=== PATIENT | female | born 1955 | race African-American/Black ===

== ENCOUNTER 2023-12-14 13:33 | Inpatient (IN) | payer MEDICAID ==
[~2023-12-14] VITALS: Ht 162.6 cm; Wt 101.6 kg
[2023-12-14] MEDS: IV NS 0.9% 1,000 ML BAG IV ONE ×2 (14:00→15:00)
[2023-12-14] MEDS ORDERED: ACETAMINOPHEN ES 500 MG TABLET ONE (14:12)
[2023-12-14] MEDS: ACETAMINOPHEN ES 500 MG TABLET PO ONE (14:14)
[2023-12-14] MEDS ORDERED: ONDANSETRON HCL/PF 4 MG/2 ML VIAL ONE (14:31)
[2023-12-14] MEDS ORDERED: hydrALAZINE HCL IV 20 MG VIAL ONE (14:31)
[2023-12-14] MEDS ORDERED: FAMOTIDINE/PF INJ 20 MG/2 ML VIAL IV ONE (14:32)
[2023-12-14] MEDS: hydrALAZINE HCL IV 20 MG VIAL IV ONE (14:44)
[2023-12-14] MEDS: ONDANSETRON HCL/PF 4 MG/2 ML VIAL IVP ONE (14:44)
[2023-12-14] MEDS: FAMOTIDINE/PF INJ 20 MG/2 ML VIAL IV ONE (14:44)
[2023-12-14] MEDS: VANCOMYCIN 1 GM in IV D5W 250 ML IV ONE (14:45)
[2023-12-14 14:47] LABS: CALCIUM, SERUM 9.2 mg/dL (8.5-10.1); CREATININE 0.9 mg/dL (0.6-1.3); POTASSIUM 3.6 mmol/L (3.5-5.1)
[2023-12-14 14:51] LABS: APPEARANCE,URINE SLIGHTLY CLOUDY (CLEAR); BILIRUBIN,URINE NEGATIVE (NEGATIVE); BLOOD, URINE 1+ Ery/uL (NEGATIVE); COLOR,URINE YELLOW (YELLOW); KETONES,URINE NEGATIVE (NEGATIVE); LEUKOCYTE ESTERASE ,URINE NEGATIVE (NEGATIVE); NITRITE, URINE POSITIVE (NEGATIVE); PROTEIN,URINE 1+ mg/dl (NEGATIVE); UGLUCOSE NEGATIVE (NEGATIVE)
[2023-12-14 14:54] LABS: ALBUMIN 3.4 g/dL (3.4-5.0); BILIRUBIN,DIRECT 0.3 mg/dL (0.0-0.2); BILIRUBIN,TOTAL 1.6 mg/dL (0.2-1.0); TOTAL PROTEIN, SERUM 8.9 g/dL (6.4-8.2)
[2023-12-14 14:57] LABS: LACTIC ACID 2.5 mmol/L (0.4-2.0)
[2023-12-14 15:00] LABS: BASOPHILS % (AUTO) 0.1 % (0.0-2.0); HEMATOCRIT 40 % (33-45); HEMOGLOBIN 12.9 g/dL (11.5-14.8); LYMPHOCYTES # (AUTO) 0.5 K/uL (0.8-4.8); LYMPHOCYTES % (AUTO) 2.5 % (20.0-44.0); MEAN CORPUSCULAR HEMOGLOBIN 29 PG (26.0-33.0); MEAN CORPUSCULAR HGB CONC 33 g/dl (31.0-36.0); MEAN CORPUSCULAR VOLUME 88 fL (82-100); MONOCYTES # (AUTO) 0.6 K/uL (0.1-1.30); MONOCYTES % (AUTO) 3.1 % (2.0-12.0); NEUTROPHILS # (AUTO) 18.7 K/uL (1.8-8.9); NEUTROPHILS % (AUTO) 94.3 % (43.0-81.0); PLATELET COUNT (AUTO) 383 K/uL (150-450); RED BLOOD CELL COUNT(AUTO) 4.52 MIL/uL (4.0-5.2); RED CELL DISTRIBUTION WIDTH 13.4 % (11.5-15.0); WHITE BLOOD COUNT (AUTO) 19.8 K/uL (4.3-11.0)
[2023-12-14 15:32] LABS: INR 1.09 (0.91-1.10); PARTIAL THROMBOPLASTIN TIME 28.1 SEC (24.3-34.3); PROTHROMBIN TIME 11.5 SECS (9.2-11.1)
[2023-12-14 15:48] LABS: ADD URINE CULTURE YES; BACTERIA,URINE 3+ /HPF (None Seen); SQUAMOUS EPITHELIAL CELL,UR 0-2 /HPF (None Seen); WBC,URINE 0-2 /HPF (0-3)
[2023-12-14] MEDS ORDERED: MORPHINE SULFATE INJ 2 MG/ML DISP.SYRIN IV PRN (16:00)
[2023-12-14] MEDS ORDERED: ZOLPIDEM TARTRATE 5 MG TABLET PO PRN (16:00)
[2023-12-14] MEDS ORDERED: MAGNESIUM HYDROXIDE 30 ML UDC PO PRN (16:00)
[2023-12-14] MEDS ORDERED: MAG HYDROX/AL HYDROX/SIMETH 30 ML UDC PO PRN (16:00)
[2023-12-14] MEDS ORDERED: ONDANSETRON HCL/PF 4 MG/2 ML VIAL IVP PRN (16:00)
[2023-12-14] MEDS ORDERED: ACETAMINOPHEN 325 MG TABLET PO PRN ×2 (16:00→17:30)
[2023-12-14] MEDS ORDERED: Z GUARD REMEDY 4 OZ OINT TP PRN (16:00)
[2023-12-14] MEDS: ENOXAPARIN SODIUM 40 MG/0.4 ML DISP.SYRIN SQ SCH (17:00)
[2023-12-14 18:22] VITALS: BP 180/77; TEMP 98.4; O2SAT 97
[2023-12-14 18:24] LABS: ANISOCYTOSIS 1+; BAND % (MANUAL) 6 % (0.0-5.0); LYMPHOCYTES % (MANUAL) 5 % (16-48); MONOCYTES % (MANUAL) 4 % (0-11.0); NEUTROPHILS % (MANUAL) 85 (42-76); PLATELET ESTIMATE ADEQUATE
[2023-12-14] MEDS: LOSARTAN POTASSIUM 25 MG TABLET PO SCH (18:29)
[2023-12-14] MEDS: VANCOMYCIN 500 MG in IV D5W 100ml IV ONE (18:30)
[2023-12-14] MEDS: IV 1/2NS 1000 ML 1,000 ML IV PRN (18:30)
[2023-12-14 20:00] VITALS: BP 167/73; TEMP 102; O2SAT 97
[2023-12-15] MEDS ORDERED: MEROPENEM 1 G VIAL IV ONE (00:35)
[2023-12-15] MEDS: MEROPENEM 1 G in IV NS 0.9% 100 ML IV ONE (00:47)
[2023-12-15 04:00] VITALS: BP 157/91; TEMP 103.1; O2SAT 95
[2023-12-15] MEDS: VANCOMYCIN 1 GM in IV D5W 250ml IV SCH (05:50)
[2023-12-15] MEDS: MEROPENEM 1 G in IV NS 0.9% 100 ML IV SCH (08:46)
[2023-12-15] MEDS: PANTOPRAZOLE 40 MG TABLET.DR PO SCH (08:47)
[2023-12-15] MEDS: ASPIRIN 81 MG TAB.CHEW PO SCH (11:00)
[2023-12-15] MEDS: METOPROLOL TARTRATE 50 MG TABLET PO SCH (11:00)
[2023-12-15 12:00] VITALS: BP 132/70; TEMP 100.1; O2SAT 95
[2023-12-15 18:11] LABS: CALCIUM, SERUM 8.4 mg/dL (8.5-10.1); POTASSIUM 3.5 mmol/L (3.5-5.1)
[2023-12-15 20:00] VITALS: BP 168/75; TEMP 99.1; O2SAT 96
[2023-12-16] VITALS: BP 133/71; TEMP 99.5; O2SAT 97
[2023-12-16 04:00] VITALS: BP 132/68; TEMP 99; O2SAT 97
[2023-12-16] MEDS: IBUPROFEN 400 MG TABLET PO PRN (06:02)
[2023-12-16] MEDS: VANCOMYCIN HCL 1.25 GM in IV D5W 250 ML IV SCH (06:12)
[2023-12-16] MEDS: ENSURE ENLIVE 237 ML LIQUID (VANILLA) PO SCH (09:00)
[2023-12-16 16:05] VITALS: BP 144/75; TEMP 97.9; O2SAT 95
[2023-12-17] VITALS: BP 167/87; TEMP 98.2; O2SAT 95
[2023-12-17 08:00] VITALS: BP 165/78; TEMP 97.9; O2SAT 96
[2023-12-17] MEDS ORDERED: IOHEXOL-350 100 ML VIAL IV ONE (13:06)
[2023-12-17] MEDS ORDERED: CT SWABBABLE VALVE TRANS SET 1 EA INFUS.SET MC ONE (13:07)
[2023-12-17] MEDS ORDERED: IV NS 0.9% 250 ML IV ONE (13:08)
[2023-12-17] MEDS: METOPROLOL TARTRATE INJ 5 MG/5 ML AMPUL IVP PRN (13:25)
[2023-12-17] MEDS ORDERED: NITROGLYCERIN 0.4 MG/TAB BOTTLE ONE (13:30)
[2023-12-17] MEDS ORDERED: METOPROLOL TARTRATE INJ 5 MG/5 ML AMPUL ONE (13:30)
[2023-12-17] MEDS: NITROGLYCERIN 0.4 MG/TAB BOTTLE SL ONE (13:41)
[2023-12-17] MEDS: APIXABAN 5 MG TABLET PO SCH (17:00)
[2023-12-17 20:27] VITALS: BP 160/76; TEMP 98.6; O2SAT 94
[2023-12-18] VITALS: BP 142/74; TEMP 98.8; O2SAT 95
[2023-12-18 04:00] VITALS: BP 152/78; TEMP 98.9; O2SAT 95
[2023-12-18 07:40] LABS: BASOPHILS % (AUTO) 0.4 % (0.0-2.0); EOSINOPHILS # (AUTO) 0.4 K/uL (0.0-0.7); HEMATOCRIT 34 % (33-45); HEMOGLOBIN 11.5 g/dL (11.5-14.8); LYMPHOCYTES # (AUTO) 1.7 K/uL (0.8-4.8); LYMPHOCYTES % (AUTO) 21.6 % (20.0-44.0); MEAN CORPUSCULAR HEMOGLOBIN 29 PG (26.0-33.0); MEAN CORPUSCULAR HGB CONC 34 g/dl (31.0-36.0); MEAN CORPUSCULAR VOLUME 86 fL (82-100); MONOCYTES # (AUTO) 0.7 K/uL (0.1-1.30); MONOCYTES % (AUTO) 9.5 % (2.0-12.0); NEUTROPHILS % (AUTO) 63.5 % (43.0-81.0); PLATELET COUNT (AUTO) 361 K/uL (150-450); RED CELL DISTRIBUTION WIDTH 13.4 % (11.5-15.0); WHITE BLOOD COUNT (AUTO) 7.9 K/uL (4.3-11.0)
[2023-12-18 08:00] VITALS: BP 165/70; TEMP 99; O2SAT 94
[2023-12-18 08:00] LABS: CALCIUM, SERUM 8.6 mg/dL (8.5-10.1); CREATININE 0.9 mg/dL (0.6-1.3); MAGNESIUM 2.1 mg/dL (1.8-2.4); PHOSPHORUS 3.1 mg/dL (2.5-4.9); POTASSIUM 3.2 mmol/L (3.5-5.1)
[2023-12-18] MEDS ORDERED: APIXABAN 5 MG TABLET PO SCH (09:00)
[2023-12-18] MEDS: DABIGATRAN ETEXILATE MESYLATE 150 MG CAPSULE PO SCH (10:16)
[2023-12-18] MEDS: POTASSIUM CHLORIDE 20 MEQ TAB.PRT.SR PO SCH (10:25)
[2023-12-18 12:00] VITALS: BP 165/70; TEMP 99; O2SAT 94
[2023-12-18] MEDS ORDERED: SULF1TAB48 PO (14:34)
[2023-12-18] MEDS ORDERED: LOSA25TA27 PO (14:34)
[2023-12-18] MEDS ORDERED: DABI150C PO (14:34)
[2023-12-18] MEDS ORDERED: METO50TA16 PO (14:34)
[2023-12-18 18:00] VITALS: BP 180/74; TEMP 98.8; O2SAT 95
[2023-12-18 20:00] VITALS: BP 160/83; TEMP 98.5; O2SAT 94
[2023-12-19 04:00] VITALS: BP 190/83; TEMP 97.7; O2SAT 92
[2023-12-19 08:24] LABS: BASOPHILS % (AUTO) 0.6 % (0.0-2.0); EOSINOPHILS # (AUTO) 0.5 K/uL (0.0-0.7); EOSINOPHILS % (AUTO) 6.7 % (0.0-6.0); HEMATOCRIT 31 % (33-45); HEMOGLOBIN 10.5 g/dL (11.5-14.8); LYMPHOCYTES % (AUTO) 13.6 % (20.0-44.0); MEAN CORPUSCULAR HEMOGLOBIN 29 PG (26.0-33.0); MEAN CORPUSCULAR HGB CONC 34 g/dl (31.0-36.0); MEAN CORPUSCULAR VOLUME 86 fL (82-100); MONOCYTES # (AUTO) 0.7 K/uL (0.1-1.30); NEUTROPHILS # (AUTO) 5.2 K/uL (1.8-8.9); NEUTROPHILS % (AUTO) 70.1 % (43.0-81.0); PLATELET COUNT (AUTO) 352 K/uL (150-450); RED CELL DISTRIBUTION WIDTH 13.8 % (11.5-15.0); WHITE BLOOD COUNT (AUTO) 7.5 K/uL (4.3-11.0)
[2023-12-19 08:30] LABS: CALCIUM, SERUM 8.1 mg/dL (8.5-10.1); CREATININE 0.7 mg/dL (0.6-1.3); PHOSPHORUS 3.4 mg/dL (2.5-4.9); POTASSIUM 3.3 mmol/L (3.5-5.1)
[2023-12-19] MEDS: POTASSIUM CHLORIDE 20 MEQ TAB.PRT.SR PO SCH (10:26)
[2023-12-19 10:30] VITALS: BP 144/75
[2023-12-25] MEDS ORDERED: APIXABAN 5 MG TABLET PO SCH (09:00)
== END 2023-12-19 12:00 | disposition home or self-care (01) | DRG 720 ==
LOC: ER 13:35 → TELE1 16:30 → MEDSG1 12-16 09:34
PROVIDERS: ATTEND Student in an Organized Health Care Education/Training Program
DX: A41.9 Sepsis, unspecified organism (principal); I26.99 Other pulmonary embolism without acute cor pulmonale; I21.A1 Myocardial infarction type 2; L03.115 Cellulitis of right lower limb; L03.116 Cellulitis of left lower limb; N39.0 Urinary tract infection, site not specified; M41.9 Scoliosis, unspecified; Z88.0 Allergy status to penicillin; Z88.6 Allergy status to analgesic agent; Z53.20 Procedure and treatment not carried out because of patient's decision for unspecified reasons; Z90.49 Acquired absence of other specified parts of digestive tract; E80.6 Other disorders of bilirubin metabolism; T63.301A Toxic effect of unspecified spider venom, accidental (unintentional), initial encounter; Y92.9 Unspecified place or not applicable; V89.2XXS Person injured in unspecified motor-vehicle accident, traffic, sequela; K44.9 Diaphragmatic hernia without obstruction or gangrene; E66.01 Morbid (severe) obesity due to excess calories; Z68.38 Body mass index [BMI] 38.0-38.9, adult; R59.0 Localized enlarged lymph nodes; R60.9 Edema, unspecified; S81.812A Laceration without foreign body, left lower leg, initial encounter; S81.811A Laceration without foreign body, right lower leg, initial encounter; X58.XXXA Exposure to other specified factors, initial encounter; B96.20 Unspecified Escherichia coli [E. coli] as the cause of diseases classified elsewhere; G47.33 Obstructive sleep apnea (adult) (pediatric); E87.6 Hypokalemia; L97.919 Non-pressure chronic ulcer of unspecified part of right lower leg with unspecified severity; L97.929 Non-pressure chronic ulcer of unspecified part of left lower leg with unspecified severity; I11.0 Hypertensive heart disease with heart failure; I50.30 Unspecified diastolic (congestive) heart failure
CPT/HCPCS: 36415; 71045-TC; 75574; 76700-TC; 80048-TC; 80076-TC; 80202-TC; 81001; 83605-TC; 83690-TC; 83735-TC; 84100-TC; 84484-TC; 85025-TC; 85730-TC; 87040-TC; 87086-TC; 93307-TC; 93970-TC; 97110-TC; 97112-TC; 97530-TC; A4223; A6253; A6403; G0378; J0360; J2185; J2405; J3370; J3490; J7030; J7050; J7060; Q9967